=== PATIENT | male | born 1990 | race African-American/Black ===

== ENCOUNTER 2020-10-09 19:31 | Emergency (ER) | payer OTHER, SELFPAY ==
[2020-10-09 19:53] VITALS: BP 174/101; PULSE 74; RESP 16; TEMP 36.6; O2SAT 99; BMI 25.8
[2020-10-09] MEDS: Lidocaine HCl 1 % MPF 5 ML VIAL SUBCUT (21:35)
--- NOTE | 2020-10-09 22:22 | ED_ITS ---
HPI - Wound/Laceration General Chief Complaint: Wound/Laceration Stated Complaint: laceration Time Seen by Provider: 10/09/20 21:25 Source: patient and family Mode of arrival: ambulatory Limitations: no limitations History of Present Illness HPI narrative: Laceration to left hand at the distal aspect right above the MCP joint of the index finger that occurred earlier this morning when he was cutting some food. He reports he is up-to-date on his tetanus. He attempted to glue it with skin glue although no success. He denies any other injuries complaints or concerns. He denies thoughts of foreign bodies. Onset (ago): hour(s) (Prior to arrival) Extremity Location: left: hand Place: home Patient tetanus UTD: Yes Context: accidental Associated symptoms: pain Treatments prior to arrival: bandage and other (Glue) Related Data Allergies Allergy/AdvReac Type Severity Reaction Status Date / Time No Known Allergies Allergy Unknown NONE Unverified 11/29/19 16:20 Review of Systems Review of Systems: Constitutional : No Fever, No Chills, Cardiovascular : No Chest Pain, No SOB Respiratory : No Dyspnea Gastrointestinal : No abdominal pain Musculoskeletal : No Joint Swelling Skin : positive skin laceration, No Foreign bodies, No rash, No surrounding erythema Neuro : No Weakness, No Numbness/tingling Psych : No SI/HI/thoughts of self injury Yes all other systems are reviewed and are negative [facility] Past Medical History Attestation statement: The following information was validated with the patient. Medical History No known health problems Social History Social History Advance Directives: No Physical Exam Vital Signs: Vital Signs: Last Vital Signs Temp 98 F 10/09/20 19:53 Pulse 74 10/09/20 19:53 Resp 16 10/09/20 19:53 BP 174/101 H 10/09/20 19:53 Pulse Ox 99 10/09/20 19:53 Body Mass Index 25.8 vital signs have been reviewed as normal and appeared to be correct. Blood pressure hypertensive 174/101 Heart rate normal. Respiration rate normal. Temperature normal. Oxygen saturation normal. Appearance: Alert. Oriented X3. No acute distress. Head: Normal external exam. Normocephalic. Atraumatic. Eyes: PERRLA. EOMI. Conjunctiva and sclera normal. Eyelids normal. ENT: Pharynx normal. Uvula midline. Moist mucous membranes. Neck: Normal inspection. Neck supple. FROM. No adenopathy. No meningeal signs. CVS: Normal heart rate and rhythm. Heart sound normal. Pulses normal throughout. Respiratory: No respiratory distress. Painless inspiration. Back: Full range of motion noted. No rashes/lesion/induration/fluctuance or signs of infection noted. Skin: Skin warm and dry. Normal skin color. Normal skin turgor. No rashes/lesions/lacerations noted. Extremities: Left hand distal aspect at the MCP patient has a 2 cm intermediate laceration no active bleeding or foreign bodies no bony tenderness ligamentous laxity or tendon injury noted. Otherwise all other Extremities exhibit normal range of motion. and nontender. Neuro: Oriented X 3. No motor deficit. No sensory deficit. Reflexes normal. Normal steady gait. No focal neuro deficits noted. Vascular: + radial pulses. Normal cap refill. No cyanosis noted to upper extremity nails. Course Course Course Narrative: Patient now status post laceration repair with [address] Patient tolerated procedure well. No complications. Tetanus updated. No imaging indicated. Will DC home with instructions return in 10-14 days for suture removal. Patient understands agrees with this plan. Procedures Laceration Laceration 1: Site: hand Side (If applicable): left Size (cm): 2 Description: linear Depth: simple, single layer Local Anesthetic: lidocaine 1% Amount of anesthesia used (mL): 3 Pre-repair: wound explored, irrigated extensively and deep structures intact Skin layer closed with: nylon Size (cm): 5-0 Number of sutures: 4 Technique: simple, interrupted MDM - Wound/Laceration Medical Records Attestation: I reviewed the patient's medical records. Discharge Plan Discharge Clinical Impression: Laceration Patient Disposition: Home, Self-Care Instructions: Finger Laceration (ED) Referrals: Seema Olson PA [Emergency Midlevel Provider] - 10 days (Return in 10-14 days for suture removal) Print Language: Ecuadorean
== END 2020-10-09 22:45 | disposition home or self-care (01) ==
PROVIDERS: Emergency Provider Internal Medicine
DX: S61.211A Laceration without foreign body of left index finger without damage to nail, initial encounter (principal); M79.645 Pain in left finger(s); W26.0XXA Contact with knife, initial encounter; Y93.G3 Activity, cooking and baking; Y92.9 Unspecified place or not applicable; Y99.9 Unspecified external cause status
CPT/HCPCS: 12001; 96372; 99283; 99284

== ENCOUNTER 2023-09-23 09:44 | Emergency (ER) | payer MEDICAID, SELFPAY ==
--- NOTE | ~2023-09-23 | US_ITS ---
EXAMINATION: ULTRASOUND RENAL WITH DOPPLER CLINICAL INFORMATION: New kidney disease COMPARISON: None. TECHNIQUE: Real-time grayscale, color Doppler, and duplex Doppler evaluation of the kidneys and renal vasculature was performed. FINDINGS: RENAL MEASUREMENTS: Right: 10.4 x 5.3 x 4.7 cm (Sag x AP x TV) Left: 10.4 x 4.7 x 5.2 cm (Sag x AP x TV) The renal parenchyma appears normal. No hydronephrosis or nephrolithiasis. DOPPLER INTERROGATION: Aorta: 81.9 cm/sec Right Main Renal Artery: Proximal: 114 cm/sec Mid: 101 cm/sec Distal: 114 cm/sec Left Main Renal Artery: Proximal: 71.8 cm/sec Mid: 73.0 cm/sec Distal: 63.9 cm/sec Segmental Resistive indices: Right: upper: 0.6 mid: 0.7 lower: 0.7 Left: upper: 0.5 mid: 0.6 lower: 0.6 Renal-Aortic Ratio (RAR): Right: 1.4 Left: 0.9 US/US renal BI IMPRESSION: No sonographic evidence of renal artery stenosis.
--- NOTE | ~2023-09-23 | US_ITS ---
EXAMINATION: ULTRASOUND RENAL WITH DOPPLER CLINICAL INFORMATION: New kidney disease COMPARISON: None. TECHNIQUE: Real-time grayscale, color Doppler, and duplex Doppler evaluation of the kidneys and renal vasculature was performed. FINDINGS: RENAL MEASUREMENTS: Right: 10.4 x 5.3 x 4.7 cm (Sag x AP x TV) Left: 10.4 x 4.7 x 5.2 cm (Sag x AP x TV) The renal parenchyma appears normal. No hydronephrosis or nephrolithiasis. DOPPLER INTERROGATION: Aorta: 81.9 cm/sec Right Main Renal Artery: Proximal: 114 cm/sec Mid: 101 cm/sec Distal: 114 cm/sec Left Main Renal Artery: Proximal: 71.8 cm/sec Mid: 73.0 cm/sec Distal: 63.9 cm/sec Segmental Resistive indices: Right: upper: 0.6 mid: 0.7 lower: 0.7 Left: upper: 0.5 mid: 0.6 lower: 0.6 Renal-Aortic Ratio (RAR): Right: 1.4 Left: 0.9 US/US renal doppler IMPRESSION: No sonographic evidence of renal artery stenosis.
[2023-09-23 09:46] VITALS: BP 150/100; PULSE 89; RESP 18; TEMP 31.4; O2SAT 97; BMI 28.0
[2023-09-23 10:00] VITALS: TEMP 36.9
--- NOTE | 2023-09-23 10:19 | ED.NAVMDI ---
HPI - Nausea/Vomiting/Diarrhea General Chief complaint: Abdominal Pain Stated complaint: Abdominal pain/Vomiting/High blood pressure Time Seen by Provider: 09/23/23 09:50 Source: patient and old records reviewed Mode of arrival: ambulatory Limitations: no limitations History of Present Illness ED Provider: JUAN C GRANDA Narrative: 33 yo male with PMH of HTN untreated, opiate use disorder doing well on methadone here with c/o n/v/d cramps starting Tuesday AM after eating Wend[employer] on Tuesday. No fevers, no bloody stools. He is still vomiting despite trying to drink water. He has body aches and just doesn't feel well. No recent travel or abx use. cannot remember the last time he had his labs checked after talking about his Cr - he notes his brother is on dialysis in his 40s MD elicited complaint: nausea, vomiting, diarrhea and abdominal pain Onset (ago): day(s) (2) Description of vomiting: food contents and watery Description of diarrhea: watery Associated nausea: Yes Associated abdominal pain: Yes Location of pain: diffuse Radiation: diffuse Pain consistency: intermittent Severity: mild Quality: cramping Exacerbating factors: eating Relieving factors: none Context: possible food poisoning Associated symptoms: loss of appetite, malaise, nausea/vomiting and weakness Related Data Previous Rx's ?Medication ?Instructions ?Recorded amlodipine 5 mg tablet 5 mg PO DAILY #30 tabs 09/23/23 ondansetron 4 mg disintegrating 4 mg PO Q8H PRN nausea and 09/23/23 tablet vomiting #20 tabs Allergies Allergy/AdvReac Type Severity Reaction Status Date / Time No Known Allergies Allergy Unknown NONE Verified 09/23/23 09:49 Review of Systems Review of Systems: Constitutional : No Weight loss, No Fever, No Chills ENT/Mouth : No sore throat, No Rhinorrhea Eyes: No Swelling, No Redness Cardiovascular : No Chest Pain, No SOB, NoEdema Respiratory : No Cough, No Sputum, No Wheezing Gastrointestinal : Positive Nausea, Positive Vomiting, positive Diarrhea, positive abdominal Pain, No Hematochezia, No Melena Genitourinary : No Dysuria, No Urinary Frequency, No Hematuria, No Urgency Musculoskeletal : No joint pain, No Myalgias, No Joint Swelling Skin : No Skin Lesions, No rash Neuro : No Weakness, No Numbness, No Dizziness, No Headache Psych : No Anxiety/Panic, No Depression All other systems reviewed and are negative. Gastrointestinal: Gastrointestinal: Reports nausea PMFSH Past Medical History Medical History Methadone maintenance therapy patient HTN (hypertension) Social History Social History (Updated 09/23/23 @ 10:27 by Saray Shin DO) Patient Tobacco Use Status: Tobacco use Unknown Physical Exam Vital Signs: Vital Signs: Last Vital Signs Temp 98.4 F 09/23/23 12:26 Pulse 52 09/23/23 12:26 Resp 17 09/23/23 12:26 BP 159/87 H 09/23/23 12:26 Pulse Ox 97 09/23/23 12:26 O2 Del Method Room Air 09/23/23 12:26 BMI result Body Mass Index 28.0 Appearance: Alert. Oriented X3. No acute distress. Eyes: Pupils equal, round and reactive to light. ENT: Pharynx mild dry MM Neck: Normal inspection. Neck supple. CVS: Normal heart rate and rhythm. Pulses normal. Respiratory: No respiratory distress. Breath sounds normal. Abdomen: Soft and nontender. Skin: Skin warm and dry. Normal skin color. Normal skin turgor. Extremities: No lower extremity edema. No calf ttp Neuro: Oriented X 3. No motor deficit. No sensory deficit. Course Course Course Narrative: signed out to [place] Patel pending US but anticipate DC at this time. Medications Administered Discontinued Medications Generic Name Dose Route Start Last Admin Trade Name Freq PRN Reason Stop Dose Admin Diphenhydramine HCl 25 mg 09/23/23 10:09/23/23 10:24 Diphenhydramine Hcl 50 Mg/Ml Vial IVPUSH 09/23/23 10:05 25 mg ONCE ONE Administration Famotidine 20 mg 09/23/23 10:04 09/23/23 10:24 Famotidine/Pf 20 Mg/2 Ml Vial IVPUSH 09/23/23 10:05 20 mg ONCE ONE Administration Lactated Ringer's 1,000 mls @ 999 mls/hr 09/23/23 10:09/23/23 11:33 Lr IV 09/23/23 11:04 Infused .Q1H1M ONE Infusion Lactated Ringer's 1,000 mls @ 999 mls/hr 09/23/23 11:10 09/23/23 15:35 Lr IV 09/23/23 12:10 Infused .Q1H1M ONE Infusion Lactated Ringer's 1,000 mls @ 999 mls/hr 09/23/23 11:15 09/23/23 15:35 Lr IV 09/23/23 12:15 Infused .Q1H1M GUILLERMINA Infusion Metoclopramide HCl 10 mg 09/23/23 10:04 09/23/23 10:24 Metoclopramide Hcl 10 Mg/2 Ml Vial IVPUSH 09/23/23 10:05 10 mg ONCE ONE Administration Medical Decision Making Medical Decision Making MDM Narrative: 33 yo male with PMH of HTN untreated, opiate use disorder doing well on methadone here with n/v/d and cramps following eating wendys no localized ttp no recent travel/abx no fevers or bloody stools at this time will obtain labs, hydrate, supportive care also untreated HTN if Cr normal will start on BP medications. Differential Diagnosis Differential Diagnoses: The differential diagnosis associated with the presentation includes viral syndrome dehydration HTN Admission/Observation Consideration of admission/observation: Escalation of care including admission/observation considered no real improvement in Cr at this time after review of labs and hydration I suspect chronic CKD and untreated HTN as cause. Will start on amlodipine. Did review with hospitalist plan to get urine studies, US and ID home on amlodipine no further vomiting Lab Data [facility] Lab Attestation statement: I reviewed the patient's lab results. 09/23/23 10:26 09/23/23 15:11 Labs: Lab Results 09/23/23 09/23/23 09/23/23 Range/Units 10:26 10:27 15:11 WBC 12.3 H (4.8-10.8) X10*3/uL RBC 5.34 (4.60-5.80) X10*6/uL Hgb 15.5 (14.0-18.0) g/dl Hct 45.7 (42.0-52.0) % MCV 85.6 (80.0-98.0) fL MCH 29.0 (27.0-33.0) pg MCHC 33.9 (31.0-36.0) g/dl RDW 13.3 (11.0-16.0) % Plt Count 308 (160-400) X10*3/uL MPV 11.2 (9.4-12.4) fL Immature Gran % (Auto) 0.4 (0.0-0.4) % Neut % (Auto) 71.1 (45-73) % Lymph % (Auto) 20.6 (20-40) % Stafford % (Auto) 7.0 (2-11) % Eos % (Auto) 0.5 (0-4) % Baso % (Auto) 0.4 (0-2) % Lymph # (Auto) 2.5 (1.2-4.9) X10*3/uL Stafford # (Auto) 0.9 (0.1-1.2) X10*3/uL Eos # (Auto) 0.1 (0.0-0.4) X10*3/uL Baso # (Auto) 0.1 (0.0-0.2) X10*3/uL Abs Immat Gran (auto) 0.05 H (0.00-0.03) X10*3/uL Absolute Neuts (auto) 8.7 H (2.0-8.3) x10*3/uL Absolute Nucleated RBC 0.000 (0.0-0.012) X10*3/uL Nucleated RBC % (auto) 0.0 (0.0-0.2) /100WBC Sodium 138 142 (135-145) mmol/L Potassium 3.7 4.0 (3.3-5.1) mmol/L Chloride 96 103 (96-108) mmol/L Carbon Dioxide 24 27 (22-29) mmol/L Anion Gap 22 H 16 (12-20) BUN 29 H 27 H (9-16) mg/dL Creatinine 2.81 H 2.30 H (0.5-1.4) mg/dL Estim Creat Clear Calc 41.1 50.2 Estimated GFR 26 33 Random Glucose 148 H 81 (60-115) mg/dL Calcium 10.7 H 10.0 D (8.4-10.2) mg/dL Magnesium 2.1 (1.6-2.6) mg/dL Total Bilirubin 0.5 (0.0-1.0) mg/dL Direct Bilirubin 0.2 (0.0-0.5) mg/dL AST 20 (5-37) U/L ALT 15 (0-40) U/L Alkaline Phosphatase 91 (39-117) U/L Total Creatine Kinase 400 H (38-174) U/L Total Protein 9.1 H (6.5-8.0) g/dL Albumin 5.0 (3.5-5.0) g/dL Lipase 21 (8-78) U/L Urine Color Dark Yellow Urine Appearance Cloudy Urine pH 5.5 (5.0-9.0) Ur Specific Preston 1.025 (1.005-1.025) Urine Protein 100 (2+) H (Neg-Trace) mg/dL Urine Glucose (UA) 100 H (Negative) mg/dL Urine Ketones Trace (Negative) mg/dL Urine Blood Negative (Negative) Urine Nitrite Negative (Negative) Ur Leukocyte Esterase Trace H (Negative) Urine RBC 0-2 (0-2) /HPF Urine WBC >50 H (0-5) /HPF Ur Squamous Epith Cells >20 (0-2) /HPF Ur Transition Epith Cell Present Ur Renal Epithelial Cell Present Urine Bacteria None Seen (None Seen) Hyaline Casts >20 (0-2) /LPF Ur Random Sodium mmol/L Urine Creatinine mg/dL Urine Microalbumin mg/L Microalb/Creat Ratio (<30) ug/mg cr Urine Opiates Screen POSITIVE H (Not Detect) Ur Buprenorphine Scrn Not Detected (Not Detect) ng/mL Ur Oxycodone Screen Positive H (Not Detect) ng/mL Urine Methadone Screen Positive H (Not Detect) ng/mL Urine Fentanyl Screen POSITIVE H (Not Detect) Ur Barbiturates Screen Not Detected (Not Detect) Ur Phencyclidine Scrn Not Detected (Not Detect) Ur Amphetamines Screen Not Detected (Not Detect) U Benzodiazepines Scrn Not Detected (Not Detect) Urine Cocaine Screen POSITIVE H (Not Detect) U Marijuana (THC) Screen Not Detected (Not Detect) Ethyl Alcohol < 10 mg/dL 09/23/23 Range/Units 15:51 WBC (4.8-10.8) X10*3/uL RBC (4.60-5.80) X10*6/uL Hgb (14.0-18.0) g/dl Hct (42.0-52.0) % MCV (80.0-98.0) fL MCH (27.0-33.0) pg MCHC (31.0-36.0) g/dl RDW (11.0-16.0) % Plt Count (160-400) X10*3/uL MPV (9.4-12.4) fL Immature Gran % (Auto) (0.0-0.4) % Neut % (Auto) (45-73) % Lymph % (Auto) (20-40) % Stafford % (Auto) (2-11) % Eos % (Auto) (0-4) % Baso % (Auto) (0-2) % Lymph # (Auto) (1.2-4.9) X10*3/uL Stafford # (Auto) (0.1-1.2) X10*3/uL Eos # (Auto) (0.0-0.4) X10*3/uL Baso # (Auto) (0.0-0.2) X10*3/uL Abs Immat Gran (auto) (0.00-0.03) X10*3/uL Absolute Neuts (auto) (2.0-8.3) x10*3/uL Absolute Nucleated RBC (0.0-0.012) X10*3/uL Nucleated RBC % (auto) (0.0-0.2) /100WBC Sodium (135-145) mmol/L Potassium (3.3-5.1) mmol/L Chloride (96-108) mmol/L Carbon Dioxide (22-29) mmol/L Anion Gap (12-20) BUN (9-16) mg/dL Creatinine (0.5-1.4) mg/dL Estim Creat Clear Calc Estimated GFR Random Glucose (60-115) mg/dL Calcium (8.4-10.2) mg/dL Magnesium (1.6-2.6) mg/dL Total Bilirubin (0.0-1.0) mg/dL Direct Bilirubin (0.0-0.5) mg/dL AST (5-37) U/L ALT (0-40) U/L Alkaline Phosphatase (39-117) U/L Total Creatine Kinase (38-174) U/L Total Protein (6.5-8.0) g/dL Albumin (3.5-5.0) g/dL Lipase (8-78) U/L Urine Color Urine Appearance Urine pH (5.0-9.0) Ur Specific Preston (1.005-1.025) Urine Protein (Neg-Trace) mg/dL Urine Glucose (UA) (Negative) mg/dL Urine Ketones (Negative) mg/dL Urine Blood (Negative) Urine Nitrite (Negative) Ur Leukocyte Esterase (Negative) Urine RBC (0-2) /HPF Urine WBC (0-5) /HPF Ur Squamous Epith Cells (0-2) /HPF Ur Transition Epith Cell Ur Renal Epithelial Cell Urine Bacteria (None Seen) Hyaline Casts (0-2) /LPF Ur Random Sodium 119.0 mmol/L Urine Creatinine 229.39 mg/dL Urine Microalbumin 294.0 mg/L Microalb/Creat Ratio 128.1 H (<30) ug/mg cr Urine Opiates Screen (Not Detect) Ur Buprenorphine Scrn (Not Detect) ng/mL Ur Oxycodone Screen (Not Detect) ng/mL Urine Methadone Screen (Not Detect) ng/mL Urine Fentanyl Screen (Not Detect) Ur Barbiturates Screen (Not Detect) Ur Phencyclidine Scrn (Not Detect) Ur Amphetamines Screen (Not Detect) U Benzodiazepines Scrn (Not Detect) Urine Cocaine Screen (Not Detect) U Marijuana (THC) Screen (Not Detect) Ethyl Alcohol mg/dL Independent Historian Clinical information obtained from an independent historian. History obtained from or confirmed by: Spouse External Record Review External record reviewed: Outpatient record Prescription Management I considered prescription management with: Other Discharge Plan Discharge Clinical Impression: Acute kidney injury superimposed on chronic kidney disease Vomiting Qualifiers: Vomiting type: unspecified Nausea presence: with nausea Qualified Code(s): R11.2 - Nausea with vomiting, unspecified Patient Disposition: Still a Patient Instructions: Chronic Kidney Disease (ED), Chronic Kidney Disease Diet (DC), Acute Nausea and Vomiting (ED) Additional Instructions: drink plenty of fluids stay hydrated return for worsening pain, fevers, inability to urinate or any other concerns do not take any NSAIDS - motrin, aleve, naprosyn only over the counter pain medication that is okay is Tylenol Prescriptions: New amlodipine 5 mg tablet 5 mg PO DAILY Qty: 30 1RF ondansetron 4 mg tablet,disintegrating 4 mg PO Q8H PRN (Reason: nausea and vomiting) Qty: 20 0RF Referrals: Gilbert Sloan MD [Physician] - 07/15/24 3:45 pm (please show up 15 minutes early it is important you do not miss this appointment) Print Language: Albanian
[2023-09-23] MEDS: Lactated Ringers 1,000 ML 999 ML IV ×4 (10:23→16:19)
[2023-09-23] MEDS: Famotidine/PF 20 MG/2 ML VIAL IVPUSH (10:24)
[2023-09-23] MEDS: Metoclopramide HCl 10 MG/2 ML VIAL IVPUSH (10:24)
[2023-09-23] MEDS: diphenhydrAMINE HCL 50 MG/ML VIAL 25 MG IVPUSH (10:24)
[2023-09-23 10:37] LABS: MANUAL DIFF FLAG NO
[2023-09-23 10:38] LABS: Basophils Absolute Auto 0.1 X10*3/uL (0.0-0.2); Basophils Percent Auto 0.4 % (0-2); Eosinophils Absolute Auto 0.1 X10*3/uL (0.0-0.4); Eosinophils Percent Auto 0.5 % (0-4); Hematocrit 45.7 % (42.0-52.0); Hemoglobin 15.5 g/dl (14.0-18.0); Imm Gran Abs Auto 0.05 X10*3/uL (0.00-0.03); Imm Gran Pct Auto 0.4 % (0.0-0.4); Lymphocytes Absolute Auto 2.5 X10*3/uL (1.2-4.9); Lymphocytes Percent Auto 20.6 % (20-40); Mean Corpuscular HGB Conc 33.9 g/dl (31.0-36.0); Mean Corpuscular Volume 85.6 fL (80.0-98.0); Mean Platelet Volume 11.2 fL (9.4-12.4); Monocytes Absolute Auto 0.9 X10*3/uL (0.1-1.2); Neutrophils Absolute Auto 8.7 x10*3/uL (2.0-8.3); Neutrophils Percent Auto 71.1 % (45-73); Platelet Count 308 X10*3/uL (160-400); Red Blood Count 5.34 X10*6/uL (4.60-5.80); Red Cell Distribution Width 13.3 % (11.0-16.0); White Blood Count 12.3 X10*3/uL (4.8-10.8)
[2023-09-23 10:39] LABS: Appearance Urine Cloudy; Color Urine Dark Yellow; Glucose Urine UA 100 mg/dL (Negative); Leukocyte Esterase Urine Trace (Negative); Nitrite Urine Negative (Negative); PH 5.5 (5.0-9.0); Specific Gravity - Urine 1.025 (1.005-1.025); UMIC TRIGGER UACC YES; Urine Blood Negative (Negative); Urine Ketones Trace mg/dL (Negative); Urine Protein 100 (2+) mg/dL (Neg-Trace)
[2023-09-23 10:48] LABS: Bacteria Urine None Seen (None Seen); Hyaline Casts Urine >20 /LPF (0-2); RBC Urine 0-2 /HPF (0-2); Renal Epithelial Cells Urine Present; Squamous Epithelial Cell Urine >20 /HPF (0-2); Transitional Epi Cells Urine Present; UACC Culture Trigger YES; WBC Urine >50 /HPF (0-5)
[2023-09-23 10:53] LABS: Amphetamine Screen Urine Not Detected (Not Detect); Barbiturates, Urine Not Detected (Not Detect); Benzodiazepines Screen Urine Not Detected (Not Detect); Buprenorphine Scr Not Detected (Not Detect); Cannabinoid Screen Urine Not Detected (Not Detect); Cocaine Screen Urine POSITIVE (Not Detect); Fentanyl, urine POSITIVE (Not Detect); Methadone Screen, Urine Positive (Not Detect); Opiate Screen Urine POSITIVE (Not Detect); Oxycodone Screen Urine Positive (Not Detect); Phencyclidine Screen Urine Not Detected (Not Detect)
[2023-09-23 11:06] LABS: Alanine Aminotransferase 15 U/L (0-40); Alkaline Phosphatase 91 U/L (39-117); Anion Gap 22 (12-20); Aspartate Amino Transferase 20 U/L (5-37); Bilirubin Direct 0.2 mg/dL (0.0-0.5); Bilirubin Total 0.5 mg/dL (0.0-1.0); Blood Urea Nitrogen 29 mg/dL (9-16); Calcium 10.7 mg/dL (8.4-10.2); Carbon Dioxide 24 mmol/L (22-29); Chloride 96 mmol/L (96-108); Creatinine Clr Calc Pharmacy 41.1; Estimated Glomerular Filt Rate 26; Ethanol < 10 mg/dL; Glucose Random 148 mg/dL (60-115); Lipase 21 U/L (8-78); Magnesium 2.1 mg/dL (1.6-2.6); Potassium 3.7 mmol/L (3.3-5.1); Sodium 138 mmol/L (135-145); Total Protein 9.1 g/dL (6.5-8.0)
[2023-09-23 12:26] VITALS: BP 159/87; PULSE 52; RESP 17; TEMP 36.9; O2SAT 97
[2023-09-23 15:27] LABS: Anion Gap 16 (12-20); Blood Urea Nitrogen 27 mg/dL (9-16); Carbon Dioxide 27 mmol/L (22-29); Chloride 103 mmol/L (96-108); Creatinine Clr Calc Pharmacy 50.2; Estimated Glomerular Filt Rate 33; Glucose Random 81 mg/dL (60-115); Sodium 142 mmol/L (135-145)
[2023-09-23 16:09] LABS: Creatinine Urine 229.39 mg/dL; Microalbum/Creatinine Ratio Ur 128.1 ug/mg cr (<30)
[2023-09-23 16:33] LABS: Estimated Average Glucose 111 mg/dL; Hemoglobin A1c % 5.5 % (<6.0)
[2023-09-23 19:19] VITALS: BP 158/102; PULSE 56; RESP 18; TEMP 36.6; O2SAT 97
[2023-09-23 19:20] VITALS: BP 158/102; PULSE 56; RESP 18; TEMP 36.6; O2SAT 97
== END 2023-09-23 19:20 | disposition home or self-care (01) ==
PROVIDERS: Emergency Medicine; Emergency Provider Student in an Organized Health Care Education/Training Program
DX: I12.9 Hypertensive chronic kidney disease with stage 1 through stage 4 chronic kidney disease, or unspecified chronic kidney disease (principal); N18.9 Chronic kidney disease, unspecified; N17.9 Acute kidney failure, unspecified; R11.2 Nausea with vomiting, unspecified; F11.20 Opioid dependence, uncomplicated
CPT/HCPCS: 36415; 76775; 80048; 80076; 80307; 81001; 82043; 82550; 82570; 83036; 83690; 83735; 84300; 85025; 87086; 93975; 96361; 96374; 96375; 99284; J1200; J2765; J7120

== ENCOUNTER 2023-09-26 15:47 | Outpatient (AMB) | payer MEDICAID, SELFPAY ==
[2023-09-26 15:49] VITALS: BP 138/96; PULSE 75; O2SAT 95; BMI 30.1
--- NOTE | 2023-09-26 15:49 | HO.NEPHOV_ITS ---
Vital Signs 09/26/23 15:49 Height 5 ft 10 in Weight 210 lb BMI 30.1 BP 138/96 H Blood Pressure Location Lt brachial Position Sitting Pulse 75 Pulse Source Pulse Oximeter Pulse Oximetry (%) 95 Oxygen Delivery Method Room Air Intake Visit Reasons: Hospital Discharge FU/ Ckd & Untreated Htn Display Director Required: No Accompanied by: Spouse Allergies No Known Allergies Allergy (Unknown, Verified 09/26/23 15:50) NONE HPI Comments Details: I had the pleasure of seeing Carlos who is a 33 year old male with history of untreated hypertension along with opiate use disorder who is currently doing well on methadone recently presented to [facility] Emergency room with sergio sea, vomiting, diarrhea as well as current cramps after eating food from [employer]. He did not have any fevers or bloody stools. Even during that presentation he was still vomiting despite trying to drink water. He had body aches and was not feeling well. He did not have any recent travel or antibiotic use. He denied any skin rashes, joint swellings, photosensitivity, epistaxis, melena, hemoptysis, sinusitis, sore throat, hematuria, flank pain. He has no history of nephrolithiasis. He has not had any weight loss, edema. He was taking nonsteroidal anti-inflammatories at the time. His urine output has been good. He was cocaine positive in the urine during that ER visit. He was also found to have SANDRA with a serum creatinine of 2.3. He was started on amlodipine at that time. Currently he is feeling well and is asymptomatic. Nephrology has been consulted to assist in his clinical management. [facility] Medical History (Updated 10/24/23 @ 09:30 by Gilbert Sloan MD) Methadone maintenance therapy patient HTN (hypertension) Social History Patient Tobacco Use Status: Tobacco use Unknown Review of Systems Const All systems reviewed & are unremarkable except as noted in HPI and below Physical Exam Vital Signs: Last Vital Signs Pulse 75 09/26/23 15:49 BP 138/96 H 09/26/23 15:49 Pulse Ox 95 09/26/23 15:49 Oxygen Delivery Method Room Air 09/26/23 15:49 BMI result Body Mass Index 30.1 Const General: comfortable and no acute distress Orientation/consciousness: patient oriented x3 HEENT Head: Yes normocephalic Mouth: Normal oral and palatal mucosa present Eyes EOM: EOMs intact bilaterally Neck Neck: Yes supple Resp Auscultation: clear to auscultation bilaterally Cardio Jugular venous distension: no JVD Rate: regular rate GI Palpation (GI): Soft to palpation Auscultation: normal bowel sounds General: Yes no CVA tenderness Back/Spine/Pelvis Back: no CVA tenderness Skin General skin exam: no rashes or lesions noted Neuro General: patient oriented x3 and moves all extremities Extrem General: Yes no pedal edema Results Reviewed Nephrology Results: Hgb 15.5 g/dl (14.0-18.0) 09/23/23 WBC 12.3 X10*3/uL (4.8-10.8) H 09/23/23 Plt Count 308 X10*3/uL (160-400) 09/23/23 Sodium 140 mmol/L (135-145) 10/20/23 Potassium 4.0 mmol/L (3.3-5.1) 10/20/23 Chloride 105 mmol/L (96-108) 10/20/23 Carbon Dioxide 27 mmol/L (22-29) 10/20/23 BUN 9 mg/dL (9-16) 10/20/23 Creatinine 0.82 mg/dL (0.5-1.4) 10/20/23 Calcium 10.1 mg/dL (8.4-10.2) 10/20/23 Urine Protein 100 (2+) mg/dL (Neg-Trace) H 09/23/23 Urine Creatinine 229.39 mg/dL 09/23/23 Renal US 09/23/23 Assessment & Plan Assessment & Plan (1) HTN (hypertension): Code(s): I10 - Essential (primary) hypertension Category: Medical Qualifiers: Hypertension type: primary hypertension Qualified Code(s): I10 - Essential (primary) hypertension (2) SANDRA (acute kidney injury): Code(s): N17.9 - Acute kidney failure, unspecified Category: Medical Plan Carlos has SANDRA likely due to tubular injury. Even though and Fridays is in the differential, it is unlikely. His urine output is good. There is no reason to suspect any obstructive uropathy or AIN. He is not taking any nonsteroidal anti-inflammatories and maintain good hydration. I have ordered extensive workup. If his creatinine does not settled down and the investigations are unyielding, he may need a renal biopsy. He should avoid nonsteroidal anti-inflammatories, cocaine and maintain good hydration. He can continue his current dosage of amlodipine for now which I shall adjust based on evolving clinical and laboratory data. His partner was present during this encounter. Time spent retrieving all his data, encounter, discussion, documentation included 62 minutes. Answered his and his partner questions. Follow-up appointment given Orders: Orders Creatinine 09/26/23 I10 - Essential (primary) hypertension, N17.9 - Acute kidney failure, unspecified Hepatitis B Core Antibody 09/26/23 I10 - Essential (primary) hypertension, N17.9 - Acute kidney failure, unspecified Hepatitis B Surface Antigen 09/26/23 I10 - Essential (primary) hypertension, N17.9 - Acute kidney failure, unspecified Anti DNA DS Antibody 09/26/23 I10 - Essential (primary) hypertension, N17.9 - Acute kidney failure, unspecified Proteinase 3 PR3 Antibodies 09/26/230 - Essential (primary) hypertension, N17.9 - Acute kidney failure, unspecified Complement C4 09/26/23 I10 - Essential (primary) hypertension, N17.9 - Acute kidney failure, unspecified Complement C3 09/26/230 - Essential (primary) hypertension, N17.9 - Acute kidney failure, unspecified Blood Urea Nitrogen 09/26/23 I10 - Essential (primary) hypertension, N17.9 - Acute kidney failure, unspecified Electrolytes 09/26/23 I10 - Essential (primary) hypertension, N17.9 - Acute kidney failure, unspecified Calcium 09/26/23 I10 - Essential (primary) hypertension, N17.9 - Acute kidney failure, unspecified MARTÍNEZ Reflex Titer and Pattern 09/26/23 I10 - Essential (primary) hypertension, N17.9 - Acute kidney failure, unspecified Myeloperoxidase Antibody 09/26/23 I10 - Essential (primary) hypertension, N17.9 - Acute kidney failure, unspecified Anti Glomerular Basement Memb 09/26/23 I10 - Essential (primary) hypertension, N17.9 - Acute kidney failure, unspecified Immunofixation Pnl, Serum 09/26/23 I10 - Essential (primary) hypertension, N17.9 - Acute kidney failure, unspecified Phospholipase A2 Receptor Pnl 09/26/23 I10 - Essential (primary) hypertension, N17.9 - Acute kidney failure, unspecified Coding Level of Care Code New Pt Level 5 (25445) Diagnoses Primary hypertension I10 Hypertension type: primary hypertension SANDRA (acute kidney injury) N17.9
== END 2023-09-26 16:16 | disposition home or self-care (01) ==
PROVIDERS: Visit Provider Internal Medicine Nephrology
DX: N17.9 Acute kidney failure, unspecified (principal); I10 Essential (primary) hypertension
CPT/HCPCS: 99205

== ENCOUNTER → 2023-09-26 15:47 | Outpatient (BNVA) | payer MEDICAID, SELFPAY | PROVIDERS: Visit Provider Internal Medicine Nephrology | DX: N17.9 Acute kidney failure, unspecified (principal); I10 Essential (primary) hypertension | CPT/HCPCS: 99202 ==

== ENCOUNTER 2023-10-20 16:11 | Outpatient (REF) | payer MEDICAID, SELFPAY ==
[2023-10-20 18:37] LABS: Anion Gap 12 (12-20); Blood Urea Nitrogen 9 mg/dL (9-16); Calcium 10.1 mg/dL (8.4-10.2); Carbon Dioxide 27 mmol/L (22-29); Chloride 105 mmol/L (96-108); Estimated Glomerular Filt Rate > 60; Sodium 140 mmol/L (135-145)
[2023-10-21 08:38] LABS: HBc Num1 0.05 S/CO (0.00-0.79); HBsAGNum1 0.24 S/CO (0.00-0.99); Hepatitis B Core Antibody Nonreactive (Nonreactive); Hepatitis B Surface Antigen Negative (Negative)
[2023-10-21 21:28] LABS: Anti DNA DS Antibody <1 IU/mL; Anti Glomerular Basement Memb <1.0 AI; Myeloperoxidase Antibody <1.0 AI; Proteinase 3 PR3 Antibodies <1.0 AI
[2023-10-21 22:13] LABS: IgA 206 mg/dL (47-310); IgG 1031 mg/dL (600-1640); IgM 100 mg/dL (50-300)
[2023-10-21 22:34] LABS: Complement C3 113 mg/dL (82-185)
[2023-10-26 11:39] LABS: Anti Nuclear Antibody Screen NEGATIVE (NEGATIVE)
[2023-11-01 17:38] LABS: Phospholipase A2 IgG ELISA <4 RU/mL; Phospholipase A2 IgG IFA NEGATIVE (NEGATIVE)
== END 2023-10-20 16:12 | disposition home or self-care (01) ==
LOC: HO.LAB 16:11
PROVIDERS: Visit Provider Internal Medicine Nephrology
DX: N17.9 Acute kidney failure, unspecified (principal); I10 Essential (primary) hypertension
CPT/HCPCS: 36415; 80051; 82310; 82565; 82784; 83520; 84520; 86021; 86038; 86160; 86225; 86255; 86334; 86704; 87340

== ENCOUNTER 2023-10-24 10:02 | Outpatient (AMB) | payer MEDICAID, SELFPAY ==
[2023-10-24 10:02] VITALS: BP 110/74; PULSE 58; O2SAT 95
--- NOTE | 2023-10-24 10:02 | HO.NEPHOV_ITS ---
Vital Signs 10/24/23 10:02 Height 5 ft 10 in Weight 209 lb BMI 30.0 BP 110/74 Blood Pressure Location Rt brachial Position Sitting Pulse 58 Pulse Source Pulse Oximeter Pulse Oximetry (%) 95 Oxygen Delivery Method Room Air Intake Visit Reasons: SANDRA / Conf Nutrition Services Associate Required: No Accompanied by: Spouse Allergies No Known Allergies Allergy (Unknown, Verified 10/24/23 10:06) NONE HPI Comments Details: I had the pleasure of seeing Carlos in follow up who is a 33 year old male with history of untreated hypertension along with opiate use disorder who is currently doing well on methadone recently presented to [facility] Emergency room with nausea, vomiting, diarrhea as well as current cramps after eating food from [employer]. He did not have any fevers or bloody stools. Even during that presentation he was still vomiting despite trying to drink water. He had body aches and was not feeling well. He did not have any recent travel or antibiotic use. He denied any skin rashes, joint swellings, photosensitivity, epistaxis, melena, hemoptysis, sinusitis, sore throat, hematuria, flank pain. He has no history of nephrolithiasis. He has not had any weight loss, edema. He was taking nonsteroidal anti-inflammatories at the time. His urine output has been good. He was cocaine positive in the urine during that ER visit. He was also found to have SANDRA with a serum creatinine of 2.3 which improved with supportive management. He is on amlodipine which is keeping BP at goal. Currently he is feeling well and is asymptomatic. [facility] Medical History (Updated 10/24/23 @ 09:30 by Gilbert Sloan MD) Methadone maintenance therapy patient HTN (hypertension) Social History Patient Tobacco Use Status: Tobacco use Unknown Review of Systems Const All systems reviewed & are unremarkable except as noted in HPI and below Physical Exam Vital Signs: Last Vital Signs Pulse 58 10/24/23 10:02 BP 110/74 10/24/23 10:02 Pulse Ox 95 10/24/23 10:02 Oxygen Delivery Method Room Air 10/24/23 10:02 BMI result Body Mass Index 30.0 Const General: comfortable and no acute distress Orientation/consciousness: patient oriented x3 HEENT Head: Yes normocephalic Mouth: Normal oral and palatal mucosa present Eyes EOM: EOMs intact bilaterally Neck Neck: Yes supple Resp Auscultation: clear to auscultation bilaterally Cardio Jugular venous distension: no JVD Rate: regular rate GI Palpation (GI): Soft to palpation Auscultation: normal bowel sounds General: Yes no CVA tenderness Back/Spine/Pelvis Back: no CVA tenderness Skin General skin exam: no rashes or lesions noted Neuro General: patient oriented x3 and moves all extremities Extrem General: Yes no pedal edema Results Reviewed Nephrology Results: Hgb 15.5 g/dl (14.0-18.0) 09/23/23 WBC 12.3 X10*3/uL (4.8-10.8) H 09/23/23 Plt Count 308 X10*3/uL (160-400) 09/23/23 Sodium 140 mmol/L (135-145) 10/20/23 Potassium 4.0 mmol/L (3.3-5.1) 10/20/23 Chloride 105 mmol/L (96-108) 10/20/23 Carbon Dioxide 27 mmol/L (22-29) 10/20/23 BUN 9 mg/dL (9-16) 10/20/23 Creatinine 0.82 mg/dL (0.5-1.4) 10/20/23 Calcium 10.1 mg/dL (8.4-10.2) 10/20/23 Urine Protein 100 (2+) mg/dL (Neg-Trace) H 09/23/23 Urine Creatinine 229.39 mg/dL 09/23/23 Renal US 09/23/23 Assessment & Plan Assessment & Plan (1) HTN (hypertension): Code(s): I10 - Essential (primary) hypertension Category: Medical Qualifiers: Hypertension type: primary hypertension Qualified Code(s): I10 - Essential (primary) hypertension Plan Carlos had SANDRA likely due to tubular injury which is resolved. His urine output is good. He is not taking any nonsteroidal anti-inflammatories and maint ain good hydration. Extensive workup for SANDRA was negative. He should avoid nonsteroidal anti-inflammatories, cocaine and maintain good hydration. He can continue his current dosage of amlodipine for now which I shall adjust based on evolving clinical and laboratory data. I may switch him to ARB with time. His partner was present during this encounter. Answered his and his partner questions. Follow-up appointment given Orders: Orders Blood Urea Nitrogen Today I10 - Essential (primary) hypertension Creatinine Today I10 - Essential (primary) hypertension Electrolytes Today I10 - Essential (primary) hypertension Protein Creatinine Ratio, Ur Today I10 - Essential (primary) hypertension Medications: Changed From amlodipine 5 mg PO DAILY 30 tabs 1RF To amlodipine 7.5 mg (1.5 x 5 mg) PO DAILY 30 days 45 tabs 7RF Discontinued ondansetron Discontinued Reason: Doctor's Order 4 mg PO Q8H PRN 20 tabs 0RF nausea and vomiting Coding Level of Care Code Est Pt Level 4 (18410) Diagnoses Primary hypertension I10 Hypertension type: primary hypertension
== END 2023-10-24 10:27 | disposition home or self-care (01) ==
PROVIDERS: Visit Provider Internal Medicine Nephrology
DX: I10 Essential (primary) hypertension (principal)
CPT/HCPCS: 99214

== ENCOUNTER → 2023-10-24 10:02 | Outpatient (BNVA) | payer MEDICAID, SELFPAY | PROVIDERS: Visit Provider Internal Medicine Nephrology | DX: I10 Essential (primary) hypertension (principal); N17.9 Acute kidney failure, unspecified; F11.20 Opioid dependence, uncomplicated; Z79.899 Other long term (current) drug therapy | CPT/HCPCS: 99212 ==